=== PATIENT | male | born 1995 | race African-American/Black ===

== ENCOUNTER 2020-09-04 18:05 | Emergency (ER) | payer SELFPAY ==
[~2020-09-04] VITALS: Ht 177.8 cm; Wt 90.7 kg
[2020-09-04] MEDS ORDERED: HYDROCODONE/APAP 5MG-325MG TAB PO ONE (19:15)
[2020-09-04] MEDS ORDERED: FIORICET 50-301 EACH PO (19:56)
[2020-09-04] MEDS ORDERED: CLINDAMYCIN HC150 MG PO (19:57)
== END 2020-09-04 20:13 | disposition home or self-care (01) ==
LOC: ER 19:06
DX: L02.01 Cutaneous abscess of face (principal); K13.0 Diseases of lips; R51.9 Headache, unspecified
CPT/HCPCS: 99283